=== PATIENT | female | born 1930 | race Caucasian/White ===

== ENCOUNTER 2018-01-22 10:27 | Emergency (ER) | payer MEDICARE, BC ==
[2009-03-12 14:13] VITALS: BP 156/71
[~2018-01-22] VITALS: Ht 167.6 cm; Wt 63.6 kg
[~2018-01-22 10:27] MED LIST: ALBUTEROL SULF0.5 M1 IH; ALDACTONE 25MG25 M1 PO; ASPI325T6 PO; ASPIRIN 32325 MG/TAB PO; ASPIRIN 81M81 MG/TA2 PO; ATENOLOL PO; ATIVAN 0.50.5 MG/TAB PO; AVALIDE 12.5 MG1 TA1 PO; AVALIDE PO; AVAPRO TAB150 MG/TAB PO; CALAN SR240 MG PO; CALCIUM + D 6001 TA1 PO; CALCIUM 600600 M2 PO; CALCIUM CARBON600 M1 PO; CALTRATE-600 W600 MG PO; CELEXA 20MG20 MG/TAB PO; CELEXA40 MG PO; CLARITIN 1010 MG/TAB PO; CLOPIDOGREL PO; COLACE 100100 MG/CAP PO; COREG CR20 MG PO; COVERA-HS240 MG PO; COZAAR100 MG PO; ECOTRIN325 MG PO; EVISTA 60MG60 MG/TAB PO; FLONASE NASAL S16 GM NS; GAS-X80 MG PO; HCTZ 25MG TAB25 MG PO; HCTZ12.5TAB PO; IMDUR 30MG30 MG/TAB PO; IMDUR 60MG60 MG/TAB PO; K-DUR 2020 MEQ PO; KLONOPIN 0.5MG0.5 MG PO; LAMICTAL 100MG100 MG PO; LAMICTAL ODT50 MG PO; LASIX 20MG TABL20 MG PO; LASIX 40MG TABL40 MG PO; LEXAPRO 10MG10 MG PO; LIPITOR 40MG TA40 MG PO; LIPITOR 80MG80 MG PO; LOMOTIL 0.025 M1 TAB PO; LOVENOX 4040 MG/0.4 SQ; MUCINEX 60600 MG/TA1 PO; MUCUSRELF400T PO; NAPROSYN375 MG PO; NEURONTIN300 MG/CAP PO; NORCO 325 MG-51 TAB PO; NOVOLOG 100U100 U/M1 SC; OCUVITE PO; OCUVITE1 TA1 PO; PEPCID 20MG TAB20 MG PO; PLAVIX 75MG TAB75 MG PO; POTASSIUM CHLO10 ME2 PO; PRAVACHOL 40MG40 MG PO; PRILOSEC 20MG20 MG PO; PROAIR HFA0.09 MG/AC IH; PROMETHAZINE V473 M2 PO; QUESTRAN LIGH4 G/PKT PO; RANEXA 500MG T500 MG PO; SENOKOT S 50 MG1 TAB PO; SYNTHROID0.05 MG/TA PO; TAPAZOLE10 MG PO; TOPROL XL 25MG25 MG PO; TOPROL XL100 MG PO; TRIAM OI 0.1 454 TOP; TYLENOL 325MG325 MG PO; VASOTEC 2.2.5 MG/TAB PO; VERAPAMIL240 MG/TAB PO; VERELAN PM200 MG PO; VERELAN240 MG PO; ZOCOR PO; [UNRECOGNIZED DRUG - OTHER] PO; evista PO
[2018-01-22 10:30] VITALS: TEMP 97.3
[2018-01-22] MEDS ORDERED: AMOXICILLIN 50500 MG PO (10:34)
[2018-01-22] MEDS ORDERED: IMODIUM 2MG CAPS2 MG PO (10:42)
[2018-01-22] MEDS ORDERED: LAMICTAL 100MG100 MG PO (10:45)
[2018-01-22] MEDS ORDERED: TAPAZOLE10 MG PO (10:47)
[2018-01-22 10:49] LABS: BASO # 0.1 (0.0-0.2); BASO % 0.8 % (0.0-2.0); EOS # 0.2 (0.0-0.7); EOS % 2.7 % (0-4.0); GRAN # 5.3 (1.4-6.5); GRAN % 66.7 % (42.2-75.2); LYMPH # 1.6 (1.2-3.4); LYMPH % 20.3 % (20.0-51.0); MEAN CELL VOLUME 87 fl (80.0-100.0); MEAN CORPUSCULAR HEMOGLOBIN 31 pg (27.0-31.0); MEAN CORPUSCULAR HGB CONC 35 g/dl (33.0-37.0); MEAN PLATELET VOLUME 9.1 fl (7.4-10.4); MONO # 0.7 (0.1-0.6); MONO % 8.6 % (1.7-9.3); PLATELET COUNT 285 K/mm3 (130-400); RED BLOOD COUNT 4.58 M/mm3 (4.10-5.30); REDCELL DISTRIBUTION WIDTH-CV 12.9 % (11.5-14.5)
[2018-01-22] MEDS ORDERED: MILK OF MA400 MG/52 (10:49)
[2018-01-22] MEDS ORDERED: ALMACONE 360 M360 ML PO (10:50)
[2018-01-22] MEDS ORDERED: OCEAN NASAL SPR45 ML NS (10:50)
[2018-01-22 10:53] LABS: PROTHROMBIN TIME 12.1 SECONDS (9.7-12.8)
[2018-01-22] MEDS ORDERED: SEROQUEL 2525 MG/TAB PO (10:53)
[2018-01-22] MEDS ORDERED: TYLENOL 325MG325 MG PO (10:55)
[2018-01-22 10:56] LABS: PARTIAL THROMBOPLASTIN TIME 27.6 SECONDS (26.0-37.0)
[2018-01-22 10:58] LABS: ALANINE AMINOTRANSFERASE 28 U/L (9-52); ALBUMIN 4.4 gm/dL (3.5-5.0); ALKALINE PHOSPHATASE 77 U/L (50-136); ANION GAP 10 mmol/L (7-16); AST,SGOT 20 U/L (15-37); BILIRUBIN,TOTAL 1.6 mg/dL (0.0-1.0); BLOOD UREA NITROGEN 39 mg/dL (7-17); CARBON DIOXIDE 29 mmol/L (22-30); CHLORIDE 91 mmol/L (98-107); CREATININE, serum 1.57 mg/dL (0.52-1.25); GLUCOSE 172 mg/dL (74-106); POTASSIUM 3.5 mmol/L (3.4-5.0); SODIUM 130 mmol/L (137-145); TOTAL PROTEIN 7.2 gm/dL (6.4-8.2)
[2018-01-22 11:16] LABS: COLLECTION METHOD CATHETER
[2018-01-22 11:20] LABS: TROPONIN-I < 0.012 ng/mL (0.000-0.034)
[2018-01-22 11:22] LABS: HYALINE CAST >12 /lpf; MUCOUS Present /lpf; PH 5 (5-8); SQUAMOUS EPITHELIAL 0-2 /hpf; URINE APPEARANCE Hazy; URINE BACTERIA None Seen /hpf; URINE BILIRUBIN Negative (NEGATIVE); URINE BLOOD Negative (NEGATIVE); URINE COLOR Yellow; URINE GLUCOSE Negative (NEGATIVE); URINE KETONE Negative (NEGATIVE); URINE LEUKOCYTE ESTERASE Negative (NEGATIVE); URINE NITRATE Negative (NEGATIVE); URINE PROTEIN(semi-quant) Negative (NEGATIVE); URINE RBC 0-2 /hpf; URINE UROBILINOGEN Negative (NEGATIVE)
[2018-01-22] MEDS ORDERED: ALDACTONE 25MG25 M1 PO (11:34)
[2018-01-22] MEDS ORDERED: ZOFRAN ODT4 MG PO (12:34)
[2018-01-22 13:14] VITALS: BP 143/74; PULSE 96
== END 2018-01-22 13:07 | disposition home or self-care (01) ==
LOC: COL.ER 10:27
PROVIDERS: Emergency Medicine
DX: S00.83XA Contusion of other part of head, initial encounter (principal); R11.2 Nausea with vomiting, unspecified; R53.1 Weakness; I25.10 Atherosclerotic heart disease of native coronary artery without angina pectoris; F41.9 Anxiety disorder, unspecified; E78.5 Hyperlipidemia, unspecified; F03.90 Unspecified dementia, unspecified severity, without behavioral disturbance, psychotic disturbance, mood disturbance, and anxiety; Z95.5 Presence of coronary angioplasty implant and graft; Z90.710 Acquired absence of both cervix and uterus; Z86.73 Personal history of transient ischemic attack (TIA), and cerebral infarction without residual deficits; Z91.81 History of falling; Z90.49 Acquired absence of other specified parts of digestive tract; Z66 Do not resuscitate; W19.XXXA Unspecified fall, initial encounter
CPT/HCPCS: J2405; J7030

== ENCOUNTER → 2018-01-27 | Outpatient (CLI) | payer MEDICARE, BC ==
[~2018-01-27] MED LIST changes: +ALMACONE 360 M360 ML PO; +AMOXICILLIN 50500 MG PO; +IMODIUM 2MG CAPS2 MG PO; +MILK OF MA400 MG/52; +OCEAN NASAL SPR45 ML NS; +SEROQUEL 2525 MG/TAB PO; +ZOFRAN ODT4 MG PO
[2018-01-27 16:43] LABS: BASO # 0.1 (0.0-0.2); BASO % 0.7 % (0.0-2.0); EOS # 0.1 (0.0-0.7); EOS % 1.9 % (0-4.0); GRAN # 4.6 (1.4-6.5); GRAN % 65.6 % (42.2-75.2); HEMATOCRIT 40.2 % (37.0-47.0); LYMPH # 1.7 (1.2-3.4); LYMPH % 24.8 % (20.0-51.0); MEAN CELL VOLUME 87 fl (80.0-100.0); MEAN CORPUSCULAR HEMOGLOBIN 30 pg (27.0-31.0); MEAN CORPUSCULAR HGB CONC 35 g/dl (33.0-37.0); MEAN PLATELET VOLUME 9.6 fl (7.4-10.4); MONO # 0.5 (0.1-0.6); MONO % 6.6 % (1.7-9.3); PLATELET COUNT 299 K/mm3 (130-400); RED BLOOD COUNT 4.62 M/mm3 (4.10-5.30); REDCELL DISTRIBUTION WIDTH-CV 12.8 % (11.5-14.5)
[2018-01-27 16:47] LABS: ALBUMIN 4.3 gm/dL (3.5-5.0); BILIRUBIN,TOTAL 1.8 mg/dL (0.0-1.0); CALCIUM 11.6 mg/dL (8.4-10.2); CREATININE, serum 1.21 mg/dL (0.52-1.25); POTASSIUM 3.6 mmol/L (3.4-5.0); TOTAL PROTEIN 6.9 gm/dL (6.4-8.2)
[2018-01-27 17:14] LABS: ERYTHROCYTE SEDIMENTATION RATE 5 mm/hr (0-30)
== END ==
LOC: ZCOL.LAB 16:35
PROVIDERS: Nurse Practitioner Family
DX: R11.2 Nausea with vomiting, unspecified (principal)

== ENCOUNTER → 2018-02-01 | Outpatient (CLI) | payer MEDICARE, BC | LOC: COL.RAD 11:27 | DX: R11.2 Nausea with vomiting, unspecified (principal) | CPT/HCPCS: Q9967 ==

== ENCOUNTER → 2018-02-02 | Outpatient (REF) ==
[2018-02-02 10:38] LABS: BASO % 0.3 % (0.0-2.0); EOS # 0.3 (0.0-0.7); GRAN # 6.6 (1.4-6.5); GRAN % 73.2 % (42.2-75.2); HEMOGLOBIN 12.3 g/dl (12.5-16.0); LYMPH # 1.4 (1.2-3.4); LYMPH % 15.8 % (20.0-51.0); MEAN CELL VOLUME 86 fl (80.0-100.0); MEAN CORPUSCULAR HEMOGLOBIN 30 pg (27.0-31.0); MEAN CORPUSCULAR HGB CONC 35 g/dl (33.0-37.0); MEAN PLATELET VOLUME 9.9 fl (7.4-10.4); MONO # 0.6 (0.1-0.6); PLATELET COUNT 257 K/mm3 (130-400); RED BLOOD COUNT 4.04 M/mm3 (4.10-5.30); REDCELL DISTRIBUTION WIDTH-CV 12.4 % (11.5-14.5)
[2018-02-02 10:41] LABS: HEMATOCRIT 34.9 % (37.0-47.0)
[2018-02-02 11:04] LABS: ALBUMIN 3.9 gm/dL (3.5-5.0); BILIRUBIN,TOTAL 2.1 mg/dL (0.0-1.0); CALCIUM 10.8 mg/dL (8.4-10.2); CREATININE, serum 1.43 mg/dL (0.52-1.25); POTASSIUM 3.3 mmol/L (3.4-5.0); TOTAL PROTEIN 6.2 gm/dL (6.4-8.2)
[2018-02-02 11:34] LABS: THYROID STIMULATING HORMONE 1.56 uIU/mL (0.465-4.680)
== END ==
LOC: ZCOL.LAB 10:29
PROVIDERS: Internal Medicine
DX: E03.9 Hypothyroidism, unspecified (principal); R11.10 Vomiting, unspecified; R53.1 Weakness

== ENCOUNTER → 2018-02-06 | Outpatient (REF) ==
[2018-02-06 12:02] LABS: CALCIUM 9.9 mg/dL (8.4-10.2); CREATININE, serum 1.09 mg/dL (0.52-1.25); POTASSIUM 3.7 mmol/L (3.4-5.0)
== END ==
LOC: ZCOL.LAB 11:31
PROVIDERS: Internal Medicine
DX: R11.10 Vomiting, unspecified (principal)

== ENCOUNTER → 2019-01-01 | Emergency (ER) | payer MEDICARE, BC ==
[2009-03-12 14:13] VITALS: BP 156/71
[~2019-01-01] VITALS: Ht 165.1 cm; Wt 64.3 kg
[~2019-01-01] MED LIST changes: +AMOXICILLIN 8751 TAB PO
[2019-01-01 09:18] VITALS: TEMP 97.7
[2019-01-01 09:55] LABS: COLLECTION METHOD CATHETER
[2019-01-01 10:02] LABS: BASO # 0.1 (0.0-0.2); BASO % 0.4 % (0.0-2.0); EOS # 0.1 (0.0-0.7); EOS % 0.6 % (0-4.0); GRAN # 10.1 (1.4-6.5); GRAN % 78.9 % (42.2-75.2); HEMATOCRIT 37.5 % (37.0-47.0); HEMOGLOBIN 13.1 g/dl (12.5-16.0); LYMPH # 1.5 (1.2-3.4); LYMPH % 11.7 % (20.0-51.0); MEAN CELL VOLUME 87 fl (80.0-100.0); MEAN CORPUSCULAR HEMOGLOBIN 30 pg (27.0-31.0); MEAN CORPUSCULAR HGB CONC 35 g/dl (33.0-37.0); MONO % 7.8 % (1.7-9.3); PLATELET COUNT 313 K/mm3 (130-400); RED BLOOD COUNT 4.32 M/mm3 (4.10-5.30); REDCELL DISTRIBUTION WIDTH-CV 12.4 % (11.5-14.5)
[2019-01-01 10:02] LABS: PH 7 (5-8); SQUAMOUS EPITHELIAL 0-2 /hpf; URINE APPEARANCE Clear; URINE BACTERIA None Seen /hpf; URINE BILIRUBIN Negative (NEGATIVE); URINE BLOOD Negative (NEGATIVE); URINE COLOR Yellow; URINE GLUCOSE Negative (NEGATIVE); URINE KETONE Negative (NEGATIVE); URINE LEUKOCYTE ESTERASE Negative (NEGATIVE); URINE NITRATE Negative (NEGATIVE); URINE PROTEIN(semi-quant) Negative (NEGATIVE); URINE RBC 0-2 /hpf; URINE UROBILINOGEN Negative (NEGATIVE)
[2019-01-01 10:13] LABS: ALANINE AMINOTRANSFERASE 20 U/L (9-52); ALBUMIN 4.1 gm/dL (3.5-5.0); ALKALINE PHOSPHATASE 82 U/L (50-136); ANION GAP 8 mmol/L (7-16); AST,SGOT 26 U/L (15-37); BILIRUBIN,TOTAL 2.1 mg/dL (0.0-1.0); BLOOD UREA NITROGEN 30 mg/dL (7-17); CALCIUM 10.2 mg/dL (8.4-10.2); CARBON DIOXIDE 25 mmol/L (22-30); CHLORIDE 95 mmol/L (98-107); CREATININE, serum 1.16 mg/dL (0.52-1.25); GLUCOSE 154 mg/dL (74-106); MAGNESIUM 2.2 mg/dL (1.6-2.3); PHOSPHOROUS 2.9 mg/dL (2.5-4.5); POTASSIUM 4.5 mmol/L (3.4-5.0); SODIUM 128 mmol/L (137-145)
[2019-01-01 10:31] LABS: TROPONIN-I < 0.012 ng/mL (0.000-0.035)
[2019-01-01 12:27] VITALS: BP 117/59; PULSE 59
== END ==
LOC: COL.ER 09:10
PROVIDERS: Emergency Medicine
DX: E87.6 Hypokalemia (principal); D72.829 Elevated white blood cell count, unspecified; I25.10 Atherosclerotic heart disease of native coronary artery without angina pectoris; F41.9 Anxiety disorder, unspecified; F03.90 Unspecified dementia, unspecified severity, without behavioral disturbance, psychotic disturbance, mood disturbance, and anxiety; I73.9 Peripheral vascular disease, unspecified; I50.9 Heart failure, unspecified; E78.5 Hyperlipidemia, unspecified; Z79.02 Long term (current) use of antithrombotics/antiplatelets; Z79.82 Long term (current) use of aspirin; Z95.5 Presence of coronary angioplasty implant and graft; Z86.73 Personal history of transient ischemic attack (TIA), and cerebral infarction without residual deficits

== ENCOUNTER 2019-01-31 12:41 | Emergency (ER) | payer MEDICARE, BC ==
[2009-03-12 14:13] VITALS: BP 156/71
[~2019-01-31] VITALS: Ht 162.6 cm; Wt 61.4 kg
[2019-01-31 12:48] VITALS: TEMP 97.1
[2019-01-31 13:17] LABS: BASO # 0.1 (0.0-0.2); BASO % 0.7 % (0.0-2.0); EOS # 0.3 (0.0-0.7); EOS % 4.6 % (0-4.0); GRAN # 4.5 (1.4-6.5); GRAN % 64.7 % (42.2-75.2); HEMOGLOBIN 11.6 g/dl (12.5-16.0); LYMPH # 1.3 (1.2-3.4); LYMPH % 18.7 % (20.0-51.0); MEAN CELL VOLUME 87 fl (80.0-100.0); MEAN CORPUSCULAR HEMOGLOBIN 31 pg (27.0-31.0); MEAN CORPUSCULAR HGB CONC 35 g/dl (33.0-37.0); MEAN PLATELET VOLUME 8.7 fl (7.4-10.4); MONO # 0.7 (0.1-0.6); MONO % 10.3 % (1.7-9.3); PLATELET COUNT 305 K/mm3 (130-400); REDCELL DISTRIBUTION WIDTH-CV 12.7 % (11.5-14.5)
[2019-01-31 13:27] LABS: ALANINE AMINOTRANSFERASE 18 U/L (9-52); ALBUMIN 3.8 gm/dL (3.5-5.0); ALKALINE PHOSPHATASE 69 U/L (50-136); ANION GAP 9 mmol/L (7-16); AST,SGOT 19 U/L (15-37); BILIRUBIN,TOTAL 1.3 mg/dL (0.0-1.0); BLOOD UREA NITROGEN 24 mg/dL (7-17); CARBON DIOXIDE 25 mmol/L (22-30); CHLORIDE 93 mmol/L (98-107); CREATININE, serum 1.08 mg/dL (0.52-1.25); GLUCOSE 119 mg/dL (74-106); POTASSIUM 4.6 mmol/L (3.4-5.0); SODIUM 127 mmol/L (137-145); TOTAL PROTEIN 6.3 gm/dL (6.4-8.2)
[2019-01-31 13:28] LABS: C-REACTIVE PROTEIN < 0.5 mg/dL (0.0-0.9)
[2019-01-31 13:47] LABS: COLLECTION METHOD CATHETER
[2019-01-31] MEDS ORDERED: ASPIRIN 81M81 MG/TA2 PO (14:09)
[2019-01-31] MEDS ORDERED: ATIVAN 0.50.5 MG/TAB PO (14:10)
[2019-01-31] MEDS ORDERED: IMDUR 60MG60 MG/TAB PO (14:13)
[2019-01-31] MEDS ORDERED: LAMICTAL 100MG100 MG PO (14:13)
[2019-01-31] MEDS ORDERED: LASIX 20MG TABL20 MG PO (14:14)
[2019-01-31 14:47] LABS: PH 5 (5-8); SQUAMOUS EPITHELIAL None Seen /hpf; URINE APPEARANCE Clear; URINE BACTERIA None Seen /hpf; URINE BILIRUBIN Negative (NEGATIVE); URINE BLOOD Negative (NEGATIVE); URINE COLOR Yellow; URINE GLUCOSE Negative (NEGATIVE); URINE KETONE Negative (NEGATIVE); URINE LEUKOCYTE ESTERASE Negative (NEGATIVE); URINE NITRATE Negative (NEGATIVE); URINE PROTEIN(semi-quant) Negative (NEGATIVE); URINE RBC None Seen /hpf; URINE UROBILINOGEN Negative (NEGATIVE)
[2019-01-31 15:06] VITALS: BP 172/74; PULSE 59
== END 2019-01-31 15:17 | disposition short-term general hospital (02) ==
LOC: COL.ER 12:41
PROVIDERS: Nurse Practitioner
DX: S01.01XA Laceration without foreign body of scalp, initial encounter (principal); S06.5X0A Traumatic subdural hemorrhage without loss of consciousness, initial encounter; I10 Essential (primary) hypertension; F32.9 Major depressive disorder, single episode, unspecified; Z90.710 Acquired absence of both cervix and uterus; Z79.02 Long term (current) use of antithrombotics/antiplatelets; W18.39XA Other fall on same level, initial encounter
CPT/HCPCS: J2405

== ENCOUNTER → 2019-02-27 | Outpatient (CLI) | payer MEDICARE, BC | LOC: COL.RAD 11:00 | DX: G31.9 Degenerative disease of nervous system, unspecified (principal); I67.82 Cerebral ischemia; I62.9 Nontraumatic intracranial hemorrhage, unspecified; Z86.73 Personal history of transient ischemic attack (TIA), and cerebral infarction without residual deficits ==